=== PATIENT | male | born 1945 | race Caucasian/White ===

== ENCOUNTER 2016-04-06 08:23 | Day surgery (SDC) | payer MEDICARE ==
[~2016-04-06] VITALS: Ht 168.3 cm; Wt 99.0 kg
[2016-04-06] MEDS: Lactated Ringer's 1,000 ML IV SCH ×2 (05:42→10:42)
[~2016-04-06 08:23] MED LIST: ASCO100089 PO; ASPI-973 PO; CALCIT PO; CHOL100045 PO; FLAX1CAP6 PO; GLUC-104 PO; KRIL1CAP12 PO; LISI-567 PO; NIAC500T21 PO; SUPER B-50 COMPLEX PO; UBID100C PO
[2016-04-06] MEDS ORDERED: Propofol 10,000 mCg/mL 20 mL Inj ONE (08:24)
[2016-04-06 08:53] VITALS: BP 138/78; PULSE 53; RESP 16; O2SAT 97
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
[2016-04-06] MEDS ORDERED: Bupivacaine-MPF 0.5% W/EPI 30 mL Inj INFILTRATE ONE (10:42)
[2016-04-06 11:06] VITALS: BP 119/80; PULSE 62; RESP 25; O2SAT 96
[2016-04-06 11:15] VITALS: BP 127/82; PULSE 53; RESP 22; O2SAT 95
[2016-04-06] MEDS ORDERED: oxyCODONE-Acetamin 5-325 mg Tablet PO PRN (11:15)
[2016-04-06] MEDS ORDERED: Ketorolac 15 mg/mL Inj IVPUSH ONE (11:15)
[2016-04-06] MEDS ORDERED: Lactated Ringer's 500 ML IV PRN (11:23)
[2016-04-06] MEDS ORDERED: Lactated Ringer's 1,000 ML IV SCH (11:23)
[2016-04-06] MEDS ORDERED: fentaNYL-PF 50 mCg/mL 2 mL Inj IVPUSH PRN (11:25)
[2016-04-06] MEDS ORDERED: MetoCLOpramide 5 mg/mL 2 mL Inj IVPUSH PRN (11:25)
[2016-04-06] MEDS ORDERED: Phenylephrine 10,000 mCg/mL Inj IVPUSH PRN (11:25)
[2016-04-06] MEDS ORDERED: Ondansetron 2 mg/mL 2 mL Inj IVPUSH PRN (11:25)
[2016-04-06] MEDS ORDERED: Dexamethasone 4 mg/mL Inj IVPUSH PRN (11:25)
[2016-04-06] MEDS ORDERED: HYDROmorphone 1 mg/mL Inj IVPUSH PRN (11:25)
[2016-04-06] MEDS ORDERED: EPHEDrine Sulfate 50 mg/mL Inj IVPUSH PRN (11:25)
--- NOTE | 2016-04-06 11:25 | PCM.ANEP1 ---
Post Anesthesia Phase 1 PACU Phase 1 Assessment Vital Signs Vital Signs Date Time Temp Pulse Resp B/P Pulse Ox O2 Delivery O2 Flow Rate FiO2 04/06/16 11:15 53 22 127/82 95 Room Air 04/06/16 11:06 36.6 62 25 119/80 96 Room Air 04/06/16 08:53 36.3 53 16 138/78 97 Room Air Anesthetic Administered: Regional Block Level of Alertness: Awake, talking Pain: No Nausea or Vomiting: No Oxygen Delivery: Room Air Lungs: Normal Air Movement Devyn Holloway MD Apr 06, 2016 11:25
--- NOTE | 2016-04-06 11:25 | PCM.ANEP2 ---
Post Anesthesia Evaluation ASA/CMS Post Anesthesia VS in Patient's Normal Range?: Yes Resp Stable; Airway Patent?: Yes CV Function & Hydration Stable: Yes Mental Status Recovered?: Yes Pain control Satisfactory?: Yes N/V Control Satisfactory?: Yes Devyn Holloway MD Apr 06, 2016 11:25
--- NOTE | 2016-04-06 11:42 | OP ---
[address] [address] OPERATIVE REPORT PATIENT: RICHIE NUNO : 1945 MR#: [id number] ADMIT: 04/06/2016 JOB ID: [id number] DATE OF SURGERY: 04/06/2016 PREOPERATIVE DIAGNOSIS(ES): Left carpal tunnel syndrome. POSTOPERATIVE DIAGNOSIS(ES): Left carpal tunnel syndrome. PROCEDURES: Left carpal tunnel release. SURGEON: Jason Joseph DO SENIOR CLINICAL STUDY MANAGER: Michelle Power DO (R) INDICATIONS: The patient is a 70-year-old male with left hand numbness and tingling secondary to carpal tunnel syndrome who has failed conservative measures and wished to proceed with a left carpal tunnel release. We discussed risks, benefits, and possible complications of surgery including, but not limited to injury to nerves and vessels, infection, bleeding, incomplete relief of symptoms, stiffness, need for additional procedures. The patient had good understanding. All questions were answered and he wished to proceed. PROCEDURE IN DETAIL: The patient was brought to the operating room. He was given an IV regional anesthetic. The left upper extremity was sterilely prepped and draped. An incision was made centered over the carpal tunnel on the volar wrist. Dissection was carefully carried through the subcutaneous tissue. The palmar fascia was incised in line with the skin incision. The transverse carpal ligament was incised in its entirety. Care was taken to release the entire ligament proximal to distal, superficial to deep. The median nerve and motor branch were visualized and protected. The wound was then irrigated and closed with interrupted nylon suture. Naropin was added as an adjunct local anesthetic. Sterile dressings and a volar splint were applied. The patient tolerated the procedure well. Blood loss was minimal. POSTOPERATIVE PROTOCOL: Have the patient maintain his splint for two weeks. Ice and elevate and follow up for recheck at that time. He was given a prescription for Percocet for pain.
== END 2016-04-06 23:59 | disposition home or self-care (01) ==
LOC: SAS 08:23
PROVIDERS: ATTEND Orthopaedic Surgery
DX: G56.02 Carpal tunnel syndrome, left upper limb (principal); I10 Essential (primary) hypertension; G47.33 Obstructive sleep apnea (adult) (pediatric); I49.8 Other specified cardiac arrhythmias; Z79.82 Long term (current) use of aspirin; Z87.891 Personal history of nicotine dependence
CPT/HCPCS: 64721; J7120